=== PATIENT | female | born 1990 | race Two or more races ===

== ENCOUNTER 2023-05-23 11:53 | Emergency (ER) | payer OTHER ==
[~2023-05-23] VITALS: Ht 162.6 cm; Wt 92.1 kg
== END 2023-05-23 17:39 | disposition home or self-care (01) ==
LOC: ER 11:53
DX: S40.861A Insect bite (nonvenomous) of right upper arm, initial encounter (principal); W57.XXXA Bitten or stung by nonvenomous insect and other nonvenomous arthropods, initial encounter; Y93.9 Activity, unspecified; Y92.9 Unspecified place or not applicable; Y99.9 Unspecified external cause status

== ENCOUNTER 2023-05-25 08:02 | Outpatient (CLI) | payer OTHER | END 2023-05-25 08:12 | disposition home or self-care (01) | LOC: PRENATAL 08:02 | PROVIDERS: ATTEND Obstetrics & Gynecology Maternal & Fetal Medicine | DX: O35.9XX0 Maternal care for (suspected) fetal abnormality and damage, unspecified, not applicable or unspecified (principal); O35.3XX0 Maternal care for (suspected) damage to fetus from viral disease in mother, not applicable or unspecified; O44.00 Complete placenta previa NOS or without hemorrhage, unspecified trimester; O34.219 Maternal care for unspecified type scar from previous cesarean delivery; O09.529 Supervision of elderly multigravida, unspecified trimester; O34.10 Maternal care for benign tumor of corpus uteri, unspecified trimester; O09.219 Supervision of pregnancy with history of pre-term labor, unspecified trimester; Z3A.19 19 weeks gestation of pregnancy ==

== ENCOUNTER 2023-07-14 14:27 | Outpatient (CLI) | payer OTHER ==
[2023-07-14 16:00] LABS: PH,URINE 5.5 (5.0-8.0); URINE APPEARANCE Clear; URINE BILIRRUBIN Negative (NEGATIVE); URINE BLOOD Negative; URINE COLOR Yellow; URINE GLUCOSE Negative (NEGATIVE); URINE LEUKOCYTE Trace; URINE NITRATE Negative; URINE PROTEIN Negative (NEGATIVE); URINE UROBILINOGEN 0.2 E.U./dl
[2023-07-14 16:01] LABS: URINE BACTERIA 333.8 uL (0.0-1933); URINE EPITHELIAL CELLS 54.3 uL (0.0-38.8); URINE RBC 2.8 uL (0.0-20.8); URINE WBC 10.9 uL (0.0-23.2)
[2023-07-14 16:12] LABS: HEMATOCRIT 36.3 % (36.0-45.00); HEMOGLOBIN 12.3 g/dL (12.0-15.00); MEAN CORPUSCULAR HEMOGLOBIN 26.7 pg (27.00-32.0); MEAN CORPUSCULAR HGB CONC 33.8 g/dl (32.0-36.0); PLATELET COUNT 209 K/uL (150-450); RED CELL DISTRIBUTION WIDTH 15.7 % (11.5-14.5)
== END 2023-07-15 14:39 | disposition home or self-care (01) ==
LOC: OBS/DEL 14:27
PROVIDERS: Obstetrics & Gynecology; ATTEND Obstetrics & Gynecology
DX: O26.892 Other specified pregnancy related conditions, second trimester (principal); Z3A.27 27 weeks gestation of pregnancy; O26.849 Uterine size-date discrepancy, unspecified trimester; O34.10 Maternal care for benign tumor of corpus uteri, unspecified trimester; O26.899 Other specified pregnancy related conditions, unspecified trimester; O60.00 Preterm labor without delivery, unspecified trimester

== ENCOUNTER 2023-08-23 13:20 | Outpatient (CLI) | payer OTHER | END 2023-08-23 13:21 | disposition home or self-care (01) | LOC: PRENATAL 13:20 | PROVIDERS: ATTEND Obstetrics & Gynecology Maternal & Fetal Medicine | DX: O26.849 Uterine size-date discrepancy, unspecified trimester (principal); O36.8199 Decreased fetal movements, unspecified trimester, other fetus; O34.219 Maternal care for unspecified type scar from previous cesarean delivery; O09.529 Supervision of elderly multigravida, unspecified trimester; O34.10 Maternal care for benign tumor of corpus uteri, unspecified trimester; O09.219 Supervision of pregnancy with history of pre-term labor, unspecified trimester; Z3A.32 32 weeks gestation of pregnancy ==

== ENCOUNTER 2023-09-22 21:37 | Inpatient (IN) | payer OTHER ==
[~2023-09-22] VITALS: Ht 162.6 cm; Wt 98.9 kg
[2023-09-22] MEDS ORDERED: AMPICILLIN SODIUM 2,000 MG VIAL ONE (21:49)
[2023-09-22 22:14] LABS: HEMOGLOBIN 12.3 g/dL (12.0-15.00); MEAN CELL VOLUME 79.1 fL (80.00-100.00); MEAN CORPUSCULAR HEMOGLOBIN 26.3 pg (27.00-32.0); MEAN CORPUSCULAR HGB CONC 33.2 g/dl (32.0-36.0); PLATELET COUNT 202 K/uL (150-450); RED BLOOD COUNT 4.69 M/uL (4.00-6.00); RED CELL DISTRIBUTION WIDTH 15.2 % (11.5-14.5); URINE APPEARANCE Cloudy; URINE BILIRRUBIN Negative (NEGATIVE); URINE COLOR Yellow; URINE GLUCOSE Negative (NEGATIVE); URINE LEUKOCYTE Negative; URINE NITRATE Negative; URINE PROTEIN Negative (NEGATIVE); URINE UROBILINOGEN 0.2 E.U./dl
[2023-09-22 22:15] LABS: URINE BACTERIA 59.2 uL (0.0-1933); URINE EPITHELIAL CELLS 22.4 uL (0.0-38.8); URINE RBC 70.5 uL (0.0-20.8); URINE WBC 6.9 uL (0.0-23.2)
[2023-09-22] MEDS ORDERED: RINGERS SOLUTION,LACTATED 1,000 ML IV SCH (22:30)
[2023-09-22] MEDS ORDERED: AMPICILLIN SODIUM 2,000 MG VIAL IV ONE (22:30)
[2023-09-22 22:31] LABS: URINE BLOOD Traces; URINE CRYSTALS FEW /HPF; URINE MUCUS SCANT
[2023-09-22] MEDS ORDERED: PRENATABS RX T1 EACH PO (22:38)
[2023-09-22] MEDS ORDERED: ADULT LOW DOSE81 M1 PO (22:38)
[2023-09-22] MEDS ORDERED: ERYTHROMYCIN BASE 3.5 GM OINT...G. OP ONE (22:44)
[2023-09-22] MEDS ORDERED: OXYTOCIN 10 UNITS/ML VIAL ONE (22:44)
[2023-09-22 22:45] LABS: INR 0.94; PARTIAL THROMBOPLASTIN TIME 29.6 SECONDS (22.0-34.0); PROTHROMBIN TIME 9.9 SECONDS (9.0-11.5)
[2023-09-22 22:49] LABS: ALBUMIN 2.7 gm/dL (3.4-5.0); BILIRUBIN TOTAL 0.27 mg/dL (0.3-1.2); CALCIUM 8.7 mg/dL (8.5-10.1); CREATININE SERUM 0.45 mg/dL (0.55-1.02); GFR 158.56; GLOBULINA 3.8 G/DL (2.4-3.5); POTASSIUM 3.67 mEq/L (3.5-5.1); TOTAL PROTEIN 6.5 gm/dL (6.4-8.2)
[2023-09-22] MEDS ORDERED: ERYTHROMYCIN BASE 1 GM TUBE OP ONE (23:15)
[2023-09-22] MEDS ORDERED: OXYTOCIN 10 UNITS/ML VIAL IV ONE (23:15)
[2023-09-22] MEDS ORDERED: CEFAZOLIN SODIUM 1,000 MG VIAL ONE (23:31)
[2023-09-23] MEDS ORDERED: OXYTOCIN 1,000 ML IV SCH (01:00)
[2023-09-23] MEDS ORDERED: PROMETHAZINE HCL 50 MG/ML AMPUL IM PRN (01:00)
[2023-09-23] MEDS ORDERED: MEPERIDINE HCL/PF 50 MG/ML VIAL IM PRN (01:00)
[2023-09-23] MEDS ORDERED: METHYLERGONOVINE MALEATE 0.2 MG/ML AMPUL IM SCH (01:34)
[2023-09-23 07:22] LABS: HEMATOCRIT 33.7 % (36.0-45.00); HEMOGLOBIN 11.4 g/dL (12.0-15.00); MEAN CELL VOLUME 78.9 fL (80.00-100.00); MEAN CORPUSCULAR HEMOGLOBIN 26.7 pg (27.00-32.0); MEAN CORPUSCULAR HGB CONC 33.8 g/dl (32.0-36.0); PLATELET COUNT 184 K/uL (150-450); RED BLOOD COUNT 4.26 M/uL (4.00-6.00); RED CELL DISTRIBUTION WIDTH 15.2 % (11.5-14.5)
[2023-09-23] MEDS ORDERED: SIMETHICONE 125 MG CAPSULE PO SCH (09:00)
[2023-09-23] MEDS ORDERED: IBUprofen 800 MG TABLET PO PRN (12:45)
[2023-09-23] MEDS ORDERED: ACETAMINOPHEN WITH CODEINE 1 UDTAB TABLET PO PRN (12:45)
[2023-09-25] MEDS ORDERED: Tylenol #3 PO (08:50)
[2023-09-25] MEDS ORDERED: NAPR500T14 PO (08:50)
== END 2023-09-25 14:43 | disposition home or self-care (01) | DRG 785 ==
LOC: LDR 21:37 → OB/GYN 21:37
PROVIDERS: ADMIT Obstetrics & Gynecology; ATTEND Obstetrics & Gynecology
PROC: 0UB70ZZ Excision of Bilateral Fallopian Tubes, Open Approach (ICD-10-PCS; 2023-09-22)
PROC: 0UB90ZZ Excision of Uterus, Open Approach (ICD-10-PCS; 2023-09-22)
PROC: 4A1HXCZ Monitoring of Products of Conception, Cardiac Rate, External Approach (ICD-10-PCS; 2023-09-22)
PROC: 10D00Z1 Extraction of Products of Conception, Low, Open Approach (ICD-10-PCS; principal; 2023-09-22 22:00)
DX: O34.211 Maternal care for low transverse scar from previous cesarean delivery (principal); O34.13 Maternal care for benign tumor of corpus uteri, third trimester; Z30.2 Encounter for sterilization; D25.9 Leiomyoma of uterus, unspecified; Z3A.37 37 weeks gestation of pregnancy; Z37.0 Single live birth; Z20.822 Contact with and (suspected) exposure to COVID-19